=== PATIENT | female | born 1935 | race Caucasian/White ===

== ENCOUNTER → 2018-04-22 12:51 | Outpatient (CLI) | payer MEDICARE, MEDICAID, SELFPAY ==
--- NOTE | 2018-04-25 14:15 | PM.PFT.1 ---
Pulmonary Function Test Referral & Results Date Patient Seen: 04/22/18 Requesting provider: Bella Jacobs Results: The spirometry demonstrates an FVC of 2.25 L which is 97% of predicted. The FEV1 was measured at 1.79 L which is 104% of predicted. The FEV1/FVC ratio was 80 which is 107% of predicted. Following the administration of bronchodilator there was no appreciable change. Lung volumes show an SVC of 2.03 L which is 83% of predicted. The diffusing capacity was measured at 16.25 which is 75% of predicted. No hemoglobin value was provided, so no correction for potential anemia could be made, if appropriate. Interpretation: This study shows probably normal spirometry. There may be very minimal reduction in lung volumes suggesting very minimal restrictive lung disease There is a mild reduction in diffusing capacity suggesting some element of disease at the capillary alveolar level less patient is anemic of course. Clinical correlation suggested
== END ==
PROVIDERS: Visit Provider Family Medicine
DX: R06.2 Wheezing (principal)
CPT/HCPCS: 94010; 94060; 94726; 94729

== ENCOUNTER 2020-05-24 08:10 | Day surgery (SDC) | payer MEDICARE, MEDICAID, SELFPAY ==
[2020-05-24] VITALS (14 sets, daily range): BP systolic 105–152; BP diastolic 54–88; PULSE 84–125; RESP 10–22; TEMP 36.1–37.3; O2SAT 93–98; BMI 22.8
--- NOTE | 2020-05-24 | PATH_ITS ---
Note [facility] Accession Number: [id number] TESTS RESULT FLAG UNITS REF RANGE LAB Clinician Provided Cytology Information No. of containers..01 Other (Miscellaneous) 01 PERITONEAL WASHINGS DIAGNOSIS: 01 PERITONEAL WASHINGS NEGATIVE FOR MALIGNANT CELLS. THIS INTERPRETATION INCLUDES EVALUATION OF A CELL BLOCK. Pathologist ICD10: R19.00 Liliana Crews MD, Pathologist NPI- [id number] Samson Zamora, Eye Surgeon ([facility]) 01 40 CC, RED, CLOUDY RECEIVED: FRESH IN ORANGE CAP CONTAINER. /VDU 05/27/2020 0758 Local FLAG LEGEND: L-Low Normal,H-High Normal,LL-Alert Low,HH-Alert High <-Panic Low,>-Panic High,A-Abnormal,AA-Critical Abnormal Performed at: 01 =Z [facility] [address], [place] [address] Lalo Garrison MD, Performed at: 01 [facility] [address], [place], [place] [id number] MD Lalo Garrison MD Phone: [phone]
--- NOTE | 2020-05-24 08:54 | PM.PREOP ---
Pre-operative Note COVID-19 COVID-19 status: Negative Result date/Date tested (Pos, Neg/Pending): 05/21/20 Interval Note History & Physical reviewed/Exam performed by Physician: Yes Changes to H&P: No
[2020-05-24] MEDS: LACTATED RINGERS 1,000 ML 100 ML IV ×3 (09:05→23:50)
--- NOTE | 2020-05-24 09:48 | SUR.OPER ---
Lithotomy on padded OR bed, head on pillow, arms secured on padded arm boards at <90 degrees abduction. Legs secured in padded yellow fins stirrups.
[2020-05-24] MEDS: BUPIVACAINE 0.5% W/ EPI (PF) 30 ML VIAL INJ (10:00)
--- NOTE | 2020-05-24 11:47 | P.OP_ITS ---
Operative Date/Time/Diagnoses Date of procedure: 05/24/20 Time of procedure: 11:47 Pre-op diagnosis: Left lower quadrant pain with complex left adnexal cyst Post-op diagnosis: same Procedure & Clinicians Procedure: Laparoscopy with lysis of adhesions, partial resection of left adnexal cyst, cystoscopy Same procedure as scheduled: No (Right ovary was not found, cyst did not ova janette, concern for ureteral injur) Indications: Patient with intermittent severe left lower quadrant pain and complex left adnexal cyst Surgeon: Lynn Hanna Gear Cutter: Mara Moss Anesthesia Type: General Operative Notes Findings: Large cyst with significant adhesions of the descending colon over the area. Adhesions of the colon to the bladder flap. Right ovary not found. Normal appearing left ovary separate from the cyst. Excrescences on the inside of the cyst wall. Normal bladder with ureters both functional at the end of the case. Closure Type: primary Specimen(s): other (Cyst wall) Estimated Blood Loss (mL): 50 Blood products transfused: none Procedure in detail: Patient was brought to the operating room where she underwent general anesthesia. She was placed in low yellowfin stirrups and prepped and draped in usual sterile fashion. No antibiotics were indicated. Pulsatile stockings were in place and functional. The area of the incisions were injected with half percent Marcaine with epinephrine. An incision was made in the umbilicus with a scalpel and the Verres needle placed in the abdomen. Confirmation of correct placement of the needle was performed by withdrawing on the syringe and then allowing fluid to fall freely through the needle. The abdomen was insufflated to 2 L of CO2. A 5 mm trocar was placed under direct visualization. 2 other 5 mm trochars were placed in the right and left lower quadrant under direct visualization after incising the skin. There did not appear to be any damage with placement of the trocars. Cell washings were obtained. Using blunt and sharp dissection the descending colon was removed as much as possible from the cyst structure. The sidewall perineum was entered to try to shell out the cyst. During this process the cyst was ruptured releasing clear fluid. The cyst was entered. There were excrescences on the inside of the cyst. The cyst wall was shelled out as much as possible however there was significant adhesions and we were unable to clearly locate the ureter. Decision was made to stop removing the rest of the cyst wall. Due to the fact that the ureter was not clearly visualized and the ovary appeared separate from the cyst decision was made not to attempt to remove the ovary. The cyst wall was brought up through the trocar and sent to pathology There was some bleeding at the base of the dissection of the cyst that was treated with Surgicel. Bleeding appeared to stop. Adequate hemostasis was noted. The CO2 was allowed to escape from the abdomen. The trochars were removed. Skin was closed with 4-0 monocryl. Cystoscopy was performed. There were no abnormalities in the bladder. Both ureters were seen to have strong jets of clear urine. The patient went to recovery room in stable condition. Counts of instruments and sponges were correct. Complications: other (Rupture of cyst was unable to take out intact) Post-operative Condition: stable Disposition: observation (Monitor for postop bleeding) Plan for aftercare: Patient will be monitored for stability postop. Home when awake and stable, probably in a.m. that she lives some distance from the hospital
--- NOTE | 2020-05-24 12:08 | SUR.PHASEI ---
pt awake, oriented, denies pain/nausea; declined PO intake x2. Report called to floor.
--- NOTE | 2020-05-24 12:31 | SUR.PHASEI ---
delay in transfer looking for patient's glasses. She continues to deny pain/nausea. awake
--- NOTE | 2020-05-24 12:46 | SUR.PHASEI ---
1232 Pt to room 222 with clothing bag. Dentures in place. Glasses were found and taken to her room. Bed down and locked, call light within reach. 96% room air. Daughter called and directed to her room. Staff will put on SCDs. No questions/concerns. Pt continues to be awake, responses appropriate, denies pain/nausea. Resp unlabored. States I'm supposed to go home today.
--- NOTE | 2020-05-24 14:19 | PC.NURSE ---
PT ARRIVED TO ROOM 222 POST OP BILAT SALPING/OOPHERECTOMY- ACTIVE BT'S PASSING FLATUS AND HAS VOIDED ALREADY- TAKING FULL LIQUID DIET WITHOUT DIFFICULTY AND ORDERED GENERAL DIET FOR DINNER- PT DENIES PAIN , HAS CLEAR LUNGS BILAT WITH SPO2 OF 96% NO EDEMA AND LAP SITES X 4 TO ABDOMEN- NOTED TO HAVE SMALL AMOUNT OF DRAINAGE TO UMBILICUS DRESSING - DAUGHTERWILFRIDO IN ROOM WITH PT
[2020-05-24 16:47] LABS: Add Manual Diff / Slide Review NO; Basophils Absolute Auto 0 /uL (0-100); Basophils Percent Auto 0.1 % (0-2); Eosinophils Absolute Auto 0 /uL (0-450); Hematocrit 31.4 % (36-46); Hemoglobin 10.5 g/dL (12.0-16.0); Lymphocytes Absolute Auto 900 /uL (1100-4500); Lymphocytes Percent Auto 11.4 % (25-40); Mean Corpuscular HGB Conc 33.6 % (30-36); Mean Corpuscular Hemoglobin 28.7 PG (26-34); Mean Corpuscular Volume 85.4 fL (80-100); Monocytes Absolute Auto 200 /uL (0-900); Monocytes Percent Auto 2.4 % (3-14); Neutrophils Absolute Auto 7100 /uL (1500-7000); Neutrophils Percent Auto 86.1 % (50-75); Platelet Count 275 X10^3/uL (150-400); Red Blood Cell Count 3.68 X10^6/uL (4.0-5.2); Red Cell Distribution Width 15.5 % (11.6-14.8); White Blood Cell Count 8.2 X10^3/uL (4.5-11.0)
[2020-05-24] MEDS: ACETAMINOPHEN 325 MG TABLET 650 MG PO (23:48)
[2020-05-25 00:10] VITALS: BP 112/58; PULSE 75; RESP 18; TEMP 35.8; O2SAT 98
[2020-05-25] MEDS: ZOLPIDEM 5 MG TABLET PO (01:09)
[2020-05-25 05:00] VITALS: BP 117/66; PULSE 83; RESP 16; TEMP 36.1; O2SAT 95
--- NOTE | 2020-05-25 06:11 | PC.NURSE ---
shift nurse manager note: Patient restless at the beginning of shift, unable to fall asleep. Dr. Hanna called and notified. Order for 1x dose of 5mg Ambien ordered. Patient has slept well since administration. Patient up to restroom throughout shift with SBA only. Abdominal incision (4 lap sites) remain dry/intact. Small amount of old sanguineous drainage present on bandaids. Patient AOx3, but forgetful. VSS, on RA. Patient anticipating discharge home today. Currently, patient is sleeping. No distress noted.
[2020-05-25 08:22] VITALS: O2SAT 97
--- NOTE | 2020-05-25 08:22 | P.DS_ITS ---
History of Present Illness History of Present Illness Date Patient Seen: 05/25/20 Time Patient Seen: 08:23 Date of Onset of Symptoms: 05/25/20 Chief complaint: LAPAROSCOPIC BSO Narrative: Patient with left lower quadrant pain and enlarged cyst in the left adnexa who presented for laparoscopic removal of the cyst probable laparoscopic BSO. Patient had laparoscopy with partial removal pelvic cyst and lysis adhesions. She was admitted for observation postoperative. Discharge Providers Provider Discharge Date: 05/25/20 Primary care physician: Bella Jacobs MD Discharge provider: Lynn Hanna MD Summary Hospital Course Discharge Diagnosis: Laparoscopic removal ovarian cyst with lysis of adhesion Hospital Course: Patient underwent laparoscopy to remove a left ovarian cyst. Patient had extensive adhesions which were lysed and due to the position and scarring unable to totally remove the cyst or ovaries. Patient was monitored in the hospital postop to make sure she had no complications from her surgery such as bleeding. Patient is doing well. She has no pain. She is urinating without difficulty. She is ambulatory. Patient states she is passing gas. Status at Discharge Cognitive/behavioral status at discharge: oriented Functional status at discharge: independent ambulation Overall status at discharge: patient is progressing back to baseline Time Spent with Patient Time spent: Less than 30 minutes Exam Vital Signs (past 8 hours): - 05/25/20 05:00 Temperature 97.0 F L Pulse Rate 83 Respiratory Rate 16 Blood Pressure 117/66 Pulse Oximetry 95 Oxygen Delivery Method Room Air Oxygen Flow Rate 0 Narrative Exam Narrative: The patient's abdomen is soft with slight distention, no tenderness. There is slight bleeding from her umbilicus and right lower quadr ant incision the other 2 incisions are clean, dry, intact without evidence of infection. Extremities without edema and nontender. Objective Labs Result Diagrams: 05/24/20 16:36 Labs: Laboratory Results - last 24 hr 05/24/20 16:36 WBC 8.2 RBC 3.68 L Hgb 10.5 L Hct 31.4 L MCV 85.4 MCH 28.7 MCHC 33.6 RDW 15.5 H Plt Count 275 Neut % (Auto) 86.1 H Lymph % (Auto) 11.4 L Phelps % (Auto) 2.4 L Eos % (Auto) 0.0 L Baso % (Auto) 0.1 Neut # (Auto) 7100 H Lymph # (Auto) 900 L Phelps # (Auto) 200 Eos # (Auto) 0 Baso # (Auto) 0 Discharge Assessment & Plan Assessment and Plan Assessment: Status post laparoscopy for left lower quadrant pain and adnexal cyst, with lysis of adhesions and partial removal of cyst. Patient appears to be stable postoperative and will be discharged home. Plan of Treatment: Patient to be discharged home. Treatment and follow-up based on biopsy results. Discharge Plan Discharge Plan Patient Disposition: Home Discharge Med Rec/Prescriptions Prescriptions: New hydrocodone-acetaminophen 5-325 mg tablet 1 tab PO Q4-6H PRN (Reason: pain) Qty: 30 RF: 0 Continued citalopram 20 mg tablet 20 mg PO DAILY RF: 0 memantine [Namenda XR] 28 mg capsule,sprinkle,ER 24hr 28 mg PO DAILY RF: 0 mirtazapine [Remeron] 15 mg tablet 7.5 mg PO DAILY RF: 0 rosuvastatin [Crestor] 10 mg tablet 10 mg PO DAILY RF: 0 Follow up/Referrals: Lynn Hanna MD [Physician] - 06/12/20 Discharge Orders: Discharge (Order); Ordered 05/25/20 Ordered By: Lynn Hanna Provider Discharge Instructions Diet: Regular Activity: no restrictions Skin/Wound/Dressing Care Report to your healthcare provider any signs of infection, such as:: chills, fever, increased pain and unusual redness Dressing: Leave Steri-Strips on incision can get wet just pat dry remove after 1 week Visit Report/Discharge Packet Instructions: DI for Laparoscopy Discharge Data Primary Care Provider: Bella Jacobs Attending Provider: Lynn Hanna
[2020-05-25 08:50] VITALS: BP 139/67; PULSE 85; RESP 16; TEMP 36.1; O2SAT 95
[2020-05-25] MEDS: CITALOPRAM 10 MG TABLET 20 MG PO (09:02)
[2020-05-25] MEDS: MIRTAZAPINE 15 MG TABLET 7.5 MG PO (09:03)
[2020-05-25] MEDS: ACETAMINOPHEN 325 MG TABLET 650 MG PO (09:04)
--- NOTE | 2020-05-25 09:33 | PC.NURSE ---
Addendum entered by Debra Cano R.N. 05/25/20 11:47: discharge to home following review of plan of care and post op care Original Note: pt up ad nelly steady on feet- had removed iv herself this am and then ate entire breakfast prior to dressing self and preparing for discharge - did take po tylenol for pain and this has been effective- awaiting her daughters arrival to discharge to home
--- NOTE | 2020-05-25 10:32 | CM.DANOTE ---
DCP: Case received, EMR reviewed and met with patient. Introduced self and role. Was able to obtain information from patient regarding her baseline activity level and living situation prior to hospitalization. DCP assessment completed with information currently available. Patient is an 85 year old female who admitted yesterday morning to the care of the surgical team. PCP: Dr. Jacobs. Payer: confirmed: Medicare/Medicaid [employer] Patient came to the hospital for a surgical procedure. She had laparoscopy with lysis of adhesions, partial resection of left adnexal cyst. Patient had been having lower left quadrant pain. Met with patient in her room. She is alert and oriented, pleasant. She was sitting up in her chair. [place] She lives with her son, and stated, he does so much around the house to help me. Indicated that he does most of the cooking. He helps with house hold chores, shopping. Patient uses a cane when outdoors, and is driving. P: Patient is to be discharged home today, with son's assist. Yolanda Cruz RN/Youth Minister
--- NOTE | 2020-06-06 | PATH_ITS ---
[facility] Accession Number: [id number] . 01 Material submitted: . body - LEFT ADNEXAL CYST . 01 Diagnosis: Left Adnexal Cyst, Biopsy: Predominantly denuded cyst wall and detached aggregate of carcinoma cells, consistent with high-grade serous carcinoma (see comment). MRV 06/03/2020 1348 Local . 01 Comment: The specimen is composed primarily of fibrous cyst wall with very little epithelial lining to evaluate. Block A2 contains a small focus of a simple short columnar epithelium with mild to moderate cytologic atypia. Block A4, however, demonstrates a detached collection within blood/fibrin of carcinoma cells, some of which form short papillae and exhibit moderate to severe cytologic atypia, frequent mitotic figures, and psammoma bodies. These carcinoma cells are not associated with the cyst wall. A panel of * immunostains is obtained, with controls stained appropriately, to evaluate these cells of interest. The tumor cells show the following results: . Cytokeratin 7: Uniformly positive. PAX-8: Uniformly positive. Estrogen receptor: Variably positive. WT1: Uniformly positive. P53: Uniformly positive (mutation pattern). P16: Positive for high level expression. . Although evaluation of architecture in relationship to the cyst wall of the detached carcinoma cells of interest is not possible, the cytologic features and the immunophenotype support the interpretation of a high-grade serous carcinoma given the typical Mullerian-type profile characterized by coexpression of PAX-8, estrogen receptor and WT1 in combination with the mutated pattern of p53 and overexpression of p16. Ultimately, definitive classification of this cyst, requires histologic examination of the resection specimen. The results of this case, including the limits of histopathologic evalution of this biopsy specimen, are discussed by Dr. Crews with Dr. Hanna on 05/30/2020 at 4:[address] Hanna indicates that the patient had, at the time of the laparoscopic surgery, a paratubal/paraovarian cystic mass and that the ovary appeared normal. . * This test was developed and its performance characteristics determined by [facility]. It has not been cleared or approved by the U.S. Food and Drug Administration. The FDA has determined that such clearance or approval is not necessary. This test is used for clinical purposes. It should not be regarded as investigational or for research. . 01 Electronically signed: . Liliana Crews MD, Pathologist NPI- [id number] . 01 Gross description: . The specimen is received in formalin, labeled left adnexal cyst, and consists of a mares-pink to pink-purple, hemorrhagic fragment of cyst measuring 3.5 x 3.0 x 1.8 cm. The external surface is wrinkled and smooth. The internal lining is smooth with no papillary excrescences. Mentally Retarded Teacher sections are submitted in cassettes A1-A2. A3-A4 - remainder of specimen. ([id number]) (EA:[id number]) /FRR 05/29/2020 1008 Local . 01 Pathologist provided ICD-10: R10.2, R10.9 . 01 CPT . 594074, [id number], [id number] Specimen Comment: A duplicate report has been generated due to demographic updates. Performed at: 01 [facility] [address] [place] [id number] MD Lalo Garrison MD Phone: [phone]
== END 2020-05-25 11:30 | disposition home or self-care (01) ==
LOC: OR 08:15 → AC 11:15
PROVIDERS: PCP Family Medicine; Referring Provider Specialist; Visit Provider Specialist
PROC: (CPT 58662; principal; 2020-05-24 09:15)
DX: K66.0 Peritoneal adhesions (postprocedural) (postinfection) (principal); N83.292 Other ovarian cyst, left side; G30.9 Alzheimer's disease, unspecified; F02.80 Dementia in other diseases classified elsewhere, unspecified severity, without behavioral disturbance, psychotic disturbance, mood disturbance, and anxiety; I10 Essential (primary) hypertension
CPT/HCPCS: 58662; 36415; 36592; 85025; J1100; J1885; J2405; J2704; J3010